=== PATIENT | male | born 1960 | race Caucasian/White ===

== ENCOUNTER 2022-01-02 04:14 | Day surgery (SDC) | payer OTHER ==
[2021-12-31 10:23] VITALS: BMI 29.1
[2022-01-02] MEDS ORDERED: MIDAZOLAM HCL 2 MG/2 ML SINGLE DOSE VIAL ONE (07:36)
[2022-01-02] MEDS ORDERED: ROPIVACAINE HCL 0.5% 30ML VIAL ONE (07:42)
[2022-01-02] MEDS ORDERED: SUCCINYLCHOLINE CHLORIDE 200 MG/10 ML SYRINGE ONE (07:48)
[2022-01-02] MEDS ORDERED: LIDOCAINE HCL/PF 2% SDV 5ML VIAL ONE (07:48)
[2022-01-02] MEDS ORDERED: PROPOFOL 20 ML ONE ×2 (07:48→08:38)
[2022-01-02] MEDS ORDERED: oxyCODONE HCL 5 MG TABLET PO PRN ×3 (07:58→08:07)
[2022-01-02] MEDS ORDERED: ONDANSETRON 4 MG/2 ML VIAL IVPUSH PRN (07:58)
[2022-01-02] MEDS ORDERED: PROMETHAZINE HCL 25 MG/1 ML VIAL IVPUSH PRN (07:58)
[2022-01-02] MEDS ORDERED: ACETAMINOPHEN 500 MG TABLET (FP) PO SCH (08:00)
[2022-01-02] MEDS ORDERED: ceFAZolin SODIUM 1 GM VIAL IVPB ONE (08:40)
[2022-01-02] MEDS: QUINAPRIL HCL 5 MG TABLET PO SCH (10:00)
[2022-01-02] MEDS: oxyCODONE HCL 10 MG SUSTAINED ACTING TABLET PO SCH ×2 (10:00→22:02)
[2022-01-02] MEDS ORDERED: ACETAMINOPHEN INJECTION 100 ML IVPB ONE (11:25)
[2022-01-02] MEDS ORDERED: ACETAMINOPHEN 1000 MG/100 ML BAG IVPB ONE (11:30)
[2022-01-02] MEDS: LACTATED RINGERS SOLUTION 1,000 ML IV SCH ×2 (11:58→22:07)
[2022-01-02] MEDS: KETOROLAC TROMETHAMINE 30 MG/1 ML VIAL IVPUSH SCH ×2 (12:38→15:11)
[2022-01-02] MEDS: ACETAMINOPHEN 500 MG TABLET (FP) PO SCH (18:08)
[2022-01-02] MEDS ORDERED: ZOLPIDEM TARTRATE 5 MG TABLET PO PRN (22:00)
[2022-01-03] MEDS: ACETAMINOPHEN 500 MG TABLET (FP) PO SCH ×2 (00:46→05:36)
[2022-01-03 08:17] VITALS: BP 148/88; PULSE 70; TEMP 97.8
[2022-01-03] MEDS ORDERED: TAMSULOSIN HCL 0.4 MG CAP PO SCH (08:30)
[2022-01-03] MEDS: oxyCODONE HCL 10 MG SUSTAINED ACTING TABLET PO SCH (09:22)
[2022-01-03] MEDS: QUINAPRIL HCL 5 MG TABLET PO SCH (09:23)
[2022-01-05] MEDS ORDERED: ACETAMINOPHEN 325 MG TABLET (FP) PO PRN (23:00)
== END 2022-01-03 13:00 | disposition home or self-care (01) ==
LOC: JASU-SURG 04:14 → JASUSAT 04:14 → J8W 12:22 → JASUSAT 01-03 13:00
PROVIDERS: ATTEND Orthopaedic Surgery
PROC: 0QSG04Z Reposition Right Tibia with Internal Fixation Device, Open Approach (ICD-10-PCS; 2022-01-02)
PROC: 0QSJ04Z Reposition Right Fibula with Internal Fixation Device, Open Approach (ICD-10-PCS; principal; 2022-01-02 08:00)
DX: S82.841A Displaced bimalleolar fracture of right lower leg, initial encounter for closed fracture (principal); X58.XXXA Exposure to other specified factors, initial encounter; Y93.89 Activity, other specified; Y92.9 Unspecified place or not applicable; Y99.9 Unspecified external cause status
CPT/HCPCS: 76000-TC-FY; 94760; 97116-GP; 97161-GP